=== PATIENT | male | born 1985 | race African-American/Black ===

== ENCOUNTER 2022-12-13 13:39 | Emergency (ER) | payer MEDICAID ==
[~2022-12-13] VITALS: Ht 180.3 cm; Wt 80.0 kg
[2022-12-13 13:42] VITALS: O2SAT 100
[2022-12-13] MEDS ORDERED: ONDANSETRON 4MG ODT PO ONE (13:45)
[2022-12-13 14:22] LABS: HEMATOCRIT. 44.7 % (42.0-52.0); MEAN CORPUSCULAR HEMOGLOBIN 30.1 pg (28.0-32.0); MEAN CORPUSCULAR VOLUME 89.9 fL (80.0-94.0); MEAN PLATELET VOLUME 8.1 fl (7.4-10.4); PLATELET 326 x1000/uL (130-400); RED BLOOD CELL COUNT 4.97 mill/uL (4.7-6.1)
[2022-12-13 14:27] LABS: CHLORIDE 108 mEq/L (98-107)
[2022-12-13 14:56] LABS: ETHANOL BLOOD < 10 mg/dL (-10)
[2022-12-13] MEDS ORDERED: ONDANSETRON HCL 4MG/2ML INJ IM ONE (15:15)
[2022-12-13] MEDS ORDERED: ONDA4TAB50 MT (16:23)
[2022-12-13 16:28] VITALS: BP 110/64; PULSE 61; RESP 18; TEMP 98
[2022-12-13 17:15] LABS: PLATELET ESTIMATE NORMAL
== END 2022-12-13 16:34 | disposition home or self-care (01) ==
LOC: ER 13:39
DX: R42 Dizziness and giddiness (principal)
CPT/HCPCS: 80053; 80320; 83690; 85025; 36415; 96372; 99283; Q0162; J2405; Z7610; G0480